=== PATIENT | male | born 1960 | race Caucasian/White ===

== ENCOUNTER 2016-07-06 14:05 | Emergency (ER) | payer OTHER ==
[2016-07-06 14:18] VITALS: BP 130/88
--- NOTE | 2016-07-06 14:55 | UC ---
UC General HPI - HPI Summary HPI Summary: The patient comes in today for: 1. Hot flashes, purple spots, twitching, dizziness (imbalance), fear of passing out, forgetfulness, Onset: Last 2-3 weeks. Palliative/provocative: Low blood sugars make this worse. Quality: dizziness Region: Generalized. Severity: 0/10 pain Time: Comes and goes. Associated symptoms: Diabetes: diagnosed 2-3 years. He is now on insulin. He sees a wildlife removal specialist whom he has seen in the last week. What he wants from us today: He wants something to treat his anxiety. * - History of Current Complaint Chief Complaint: UCGeneralIllness Stated Complaint: ANXIETY Time Seen by Provider: 07/06/16 14:32 Hx Obtained From: Patient - Allergy/Home Medications Allergies/Adverse Reactions: Allergies Allergy/AdvReac Type Severity Reaction Status Date / Time Codeine Allergy Itching Verified 07/06/16 14:17 Home Medications: Home Medications Insulin Detemir (NF) [Levemir (NF)] 100 unit SUBCUT DAILY 07/06/16 [History Confirmed 07/06/16] Insulin Glulisine [Apidra] 100 unit PRN 07/06/16 [History] PMH/Surg Hx/FS Hx/Imm Hx Previously Healthy: No Endocrine History Of: Reports: Diabetes - TYPE II insuln dependent Denies: Thyroid Disease, Hyperthyroidism, Hypothyroidism, Dyslipidemia Cardiovascular History Of: Denies: Cardiac Disorders, Hypertension, Pacemaker/ICD, Myocardial Infarction , Congestive Heart Failure, Atrial Fibrillation, Deep Vein Thrombosis, Bleeding Disorders Respiratory History Of: Denies: COPD, Asthma, Bronchitis, Pneumonia, Pulmonary Embolism GI/ History Of: Denies: Gastroesophageal Reflux, Ulcer, Gastrointestinal Bleed, Gall Bladder Disease, Kidney Stones, Diverticulitis, Renal Disease, Urosepsis Neurological History Of: Denies: TIA, CVA, Dementia, Seizures, Migraine Psychological History Of: Reports: Anxiety - No recent medications., Depression - OCCASIONALLY Denies: Bipolar Disorder, Schizophrenia, Post Traumatic Stress Disorder Cancer History Of: Denies: Lung Cancer, Colorectal Cancer, Breast Cancer, Prostate Cancer, Cervical Cancer Other History Of: Negative For: HIV, Hepatitis B, Hepatitis C, Anticoagulant Therapy - Surgical History Surgical History: None Surgery Procedure, Year, and Place: BROKEN RIGHT WRIST-SCREWS/PLATE 12/11/15 - Family History Known Family History: Positive: Unknown - He was adopted. But he know some of his genetic family med Hx., Hypertension, Diabetes - Social History Occupation: Unemployed Alcohol Use: None Substance Use Type: Marijuana Substance Use Comment - Amount & Last Used: MARIJUANA Smoking Status (MU): Former Smoker Type: eCigarettes Amount Used/How Often: USES VAPOR NOW- SMOKER X 43 YEARS Have You Smoked in the Last Year: No When Did the Patient Quit Smoking/Using Tobacco: 3 YEARS AGO Review of Systems Constitutional: Negative Skin: Negative Eyes: Negative ENT: Negative Respiratory: Negative Cardiovascular: Negative Gastrointestinal: Negative Genitourinary: Negative Psychological: Anxious All Other Systems Reviewed And Are Negative: Yes Physical Exam Triage Information Reviewed: Yes Appearance: Well-Appearing, No Pain Distress, Well-Nourished Vital Signs: Initial Vital Signs Temp 98.7 F 07/06/16 14:08 Pulse 77 07/06/16 14:08 Resp 18 07/06/16 14:08 BP 130/88 07/06/16 14:08 Pulse Ox 100 07/06/16 14:08 Vital Signs Reviewed: Yes Eyes: Positive: Conjunctiva Clear. Negative: Discharge ENT: Positive: Hearing grossly normal. Negative: Pharyngeal erythema, Nasal congestion, Nasal drainage, TM bulging, TM dull, TM red, Tonsillar swelling, Tonsillar exudate Dental: Negative: Gross Decay/Caries @, Dental Fracture @ Neck: Positive: Supple, Nontender, No Lymphadenopathy. Negative: Nuchal Rigidity Respiratory: Positive: Lungs clear, No respiratory distress, No accessory muscle use. Negative: Crackles, Wheezing Cardiovascular: Positive: RRR, No Murmur Abdomen Description: Positive: Nontender, No Organomegaly, Soft. Negative: Distended, Guarding Musculoskeletal: Positive: Strength Intact, ROM Intact Neurological: Positive: Alert, Muscle Tone Normal Psychological: Positive: Age Appropriate Behavior, Consolable, Other: - The patient had pressured speech and went from topic to topic. He was initially very animated. After just listening to him and giving empathetic psychotherapy , he became much more relaxed and we agreed to focus on just getting him something for his anxiety. Course/Dx - Course Course Of Treatment: The patient was given empathetic psychotherapy and he bacame much more calm. We agreed that we would focus on a treatment for his anxiety and settled on a prescription for Ativan. He is supposed to follow up with his primary care provider in a week or so. - Differential Dx - Multi-Symptom Provider Diagnoses: Anxiety Discharge - Discharge Plan Condition: Stable Disposition: HOME Patient Education Materials: Anxiety (ED) Referrals: Saturnino Bolivar MD [Primary Care Provider] - 1 Week (Please see your primary care provider in about one to two weeks to see how well you are doing. If you get worse, please be seen sooner.)
== END 2016-07-06 15:32 | disposition home or self-care (01) ==
LOC: UCCORT 14:05
DX: F41.9 Anxiety disorder, unspecified (principal); R42 Dizziness and giddiness; E11.9 Type 2 diabetes mellitus without complications; Z79.4 Long term (current) use of insulin; Z87.891 Personal history of nicotine dependence
CPT/HCPCS: 99212; G0463

== ENCOUNTER 2017-04-21 06:23 | Day surgery (SDC) | payer OTHER ==
[~2017-04-21 06:23] MED LIST: Buffered Lidocaine 0.9% SYRIN* 5 ML/SYR SYRINGE INTRADERM ONE; Sodium Citrate/Citric Acid* 15 ML UDC PO ONE
[2017-04-21] MEDS ORDERED: ceFAZolin 2 GM in 100 MLS NS (*) BAG IVPB ONE (06:28)
[2017-04-21] MEDS ORDERED: Sodium Citrate/Citric Acid* 15 ML UDC ONE (06:29)
[2017-04-21] MEDS ORDERED: Propofol* 10 MG/ML 20 ML BTL IV PUSH ONE (07:41)
[2017-04-21] MEDS ORDERED: Lidocaine 2% PF * 5 ML VIAL ONE (07:41)
[2017-04-21] MEDS ORDERED: fentaNYL* 50 MCG/ML 2 ML VIAL (100 MCG VIAL) ONE (07:43)
[2017-04-21] MEDS ORDERED: Midazolam* 1 MG/ML 2 ML VIAL (2 MG) ONE (07:43)
[2017-04-21] MEDS ORDERED: Ondansetron INJ* 2 MG/ML VIAL IV PRN (07:53)
[2017-04-21] MEDS ORDERED: Naloxone* 0.4 MG/ML 1 ML VIAL IV PRN (07:53)
[2017-04-21] MEDS ORDERED: fentaNYL* 50 MCG/ML 2 ML VIAL (100 MCG VIAL) IV PRN (07:53)
[2017-04-21] MEDS ORDERED: Bupivacaine 0.25% SDV* 30 ML ONE (08:52)
[2017-04-21] MEDS ORDERED: HYDROcodone/ACETAMIN 5-325 MG* 1 TAB ONE (12:20)
[2017-04-21] MEDS ORDERED: traMADol TAB* 50 MG ONE (12:31)
[2017-04-21] MEDS ORDERED: Ibuprofen TAB* 600 MG ONE (12:32)
[2017-04-21] MEDS ORDERED: Ondansetron INJ* 2 MG/ML VIAL ONE (12:34)
[2017-04-21 12:53] VITALS: BP 149/86
--- NOTE | 2017-04-22 13:21 | RAD ---
INDICATION: Right wrist. No other history is provided COMPARISONS: March 01, 2017 TECHNIQUE: Fluoroscopy was provided for a surgical procedure. Total fluoroscopy time is: 59 seconds FINDINGS: Spot images demonstrate removal of fixation hardware of the distal radius. There is a fixation plate of the ulnar diaphysis. IMPRESSION: FLUOROSCOPY WAS PROVIDED FOR A SURGICAL PROCEDURE CPT II Codes: 6045F
--- NOTE | 2017-04-23 03:23 | OP ---
DATE OF OPERATION: 04/21/17 - [facility] DATE OF : 58 SURGEON: Juan José Perera MD PACKAGE WORKER: TREVOR Arellano. An assistant professor nurse education was needed for the entirety of the procedure to aid in positioning of the arm and retraction. ANESTHESIOLOGIST: Dr. Barroso. ANESTHESIA: General. PRE-OP DIAGNOSES: 1. 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 2. Right distal radius symptomatic hardware. POST-OP DIAGNOSES: 1. 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 2. Right distal radius symptomatic hardware. OPERATIVE PROCEDURE: 1. Right wrist arthroscopy with central TFCC perforation debridement. 2. Removal of hardware, right distal radius plate and screws. 3. Right ulnar shortening osteotomy using the [employer]Med ulnar shortening osteotomy system. INDICATIONS: Gage is a 56-year-old. He had a distal radius fracture back in November 2015, which we fixed. This looked atomic. The bone healed uneventfully. He has been left with with persistent ulnar-sided pain ever since the fracture. He is very tender over the TFCC and lot of pain with rotational activities. I had talked to him about his treatment options. I told him that I would inspect the TFCC arthroscopically. We cannot really get an MRI given his plates and screws that were retained. Additionally, the hardware did seem to be bothering him with weather changes and so I told him we would remove the plate and screws. I told him that depending on the arthroscopic findings there is a good chance of a shortened ulna. He understood the risks and benefits including the risks of persistent pain, risk of nonunion of the ulnar shortening osteotomy, risk of refracture after removal of the right distal radius plate and screws. ESTIMATED BLOOD LOSS: 5 mL. COMPLICATIONS: None. FINDINGS: Indeed he had a central perforation of the TFCC, other than that I did not see any large peripheral tears. The cartilage surface was intact on arthroscopy. DESCRIPTION OF PROCEDURE: Gage was seen in the preoperative holding area. The correct side, site, and procedure were identified. We came back to the operating room. The arm was prepped and draped in the usual fashion. A time- out was performed. The arm was positioned in the Acumed traction tower. Appropriate traction was placed. The arm was exsanguinated with the Esmarch and then tourniquet was inflated 250 mmHg. I then made a 3-4 portal using an 11 blade, a mosquito followed by the blunt trocar. The camera was introduced there. The radial- sided structures all looked good. I came ulnar, a central TFCC tear was identified. There was a subserosal recess identified laterally, but no other obvious large peripheral tears. A 6R portal was created. The central TFCC perforation was debrided with the biter followed by the shaver. There was some synovitis anterior and dorsally. This was removed with the [employer] radiofrequency ablator. I then created midcarpal portals and examined the intracarpal stability There was no large step- off in it and I would grade it as a stage 1, no more than stage 2 instability. At the scapholunate interval he did have a type 2 lunate, but no instability of the lunotriquetral interval. I then removed all the arthroscopic equipment. The arm was brought out of the tower. We opened his longitudinal incision over the distal radius. Dissection was carried down to the sheath, the FCR was released again. The tendon was retracted. Pronator was released. The distal radius plate was then removed uneventfully. This was a Synthes plate. The bony spikes were smoothed back with a rongeur. This was irrigated out. The pronator was repaired with 3-0 Vicryl suture. Skin was closed with 4-0 Monocryl suture. I then made a longitudinal incision over the ulnar shaft. Dissection was carried down and the interval between the ECU and FCU tendon, utilized subperiosteal dissection, released the soft tissue off the dorsum of the ulna. The plate was planted into place. I then placed the screw in the appropriate position in the oblong hole, the other 2 screws on the other side of the plate were drilled. I then selected my 5 mm cutting guide. This was clamped in place and the first osteotomy was made, the second osteotomy was then made using cutting guide B. Then using my compression clamp to compress the osteotomy, the oblong screw was re- tightened. I then drilled 4 for the lag screw and partially threaded 18 mm lag screw was placed in standard fashion. This provided excellent compression across the osteotomy across the visualizable portion of the osteotomy. All soft tissue had been removed that was interposed in the osteotomy. I then placed my other 2 screws in a standard fashion. Fluoroscopic imaging checked of the wrist, elbow at the osteotomy site. Screws lengths were looking good. I did have to switch couple of the screws out for longer screws. The wound was then irrigated out. The fascia overlying the ulna was closed with 2-0 Vicryl suture. Subcutaneous tissue was reapproximated. Skin was closed with 4-0 Monocryl suture and Steri-Strips were applied to all of the wounds. The arthroscopic portals were then closed with 4- 0 nylon suture. The wounds were infiltrated with 0.25% plain Marcaine. They were dressed with Xeroform, 4x4s, sterile Webril and sugar tong splint was placed. He was then woken up and taken to the recovery room in stable condition. [id number]/CPS #: [id number] ANAND
== END 2017-04-21 13:07 | disposition home or self-care (01) ==
LOC: OREAST 06:23
PROVIDERS: ATTEND Orthopaedic Surgery Hand Surgery
DX: S63.591D Other specified sprain of right wrist, subsequent encounter (principal); T84.84XA Pain due to internal orthopedic prosthetic devices, implants and grafts, initial encounter; Y83.1 Surgical operation with implant of artificial internal device as the cause of abnormal reaction of the patient, or of later complication, without mention of misadventure at the time of the procedure; E11.9 Type 2 diabetes mellitus without complications; Z79.4 Long term (current) use of insulin; F17.210 Nicotine dependence, cigarettes, uncomplicated
CPT/HCPCS: 76000; 88300; 88304; 88311; A9270-GY; C1713; C1776; J2250; J2405; J2704; J3010